=== PATIENT | male | born 1955 | race Native Hawaiian/Other Pacific Islander ===

== ENCOUNTER 2016-09-10 08:38 | Outpatient (CLI) | payer OTHER ==
[~2016-09-10 08:38] MED LIST: AMLO2.5T PO; ASPIRIN ADULT L81 MG OR; CLONIDINE0.2 MG PO; ZESTRIL40 MG OR
== END 2016-09-10 19:06 | disposition home or self-care (01) ==
LOC: MRI 08:38
DX: M54.12 Radiculopathy, cervical region (principal)

== ENCOUNTER 2016-11-26 08:21 | Outpatient (CLI) | payer OTHER | END 2016-11-26 19:48 | disposition home or self-care (01) | LOC: MRI 08:21 | DX: M54.17 Radiculopathy, lumbosacral region (principal) ==

== ENCOUNTER 2018-06-21 14:25 | Outpatient (CLI) | payer OTHER ==
[2018-06-21 14:47] LABS: PLATELET COUNT 269 K/uL (142-355)
[2018-06-21 15:33] LABS: POTASSIUM 3.8 mmol/L (3.6-5.2)
== END 2018-06-21 22:21 | disposition home or self-care (01) ==
LOC: LABW 14:25
PROVIDERS: Internal Medicine
DX: I10 Essential (primary) hypertension (principal); E11.9 Type 2 diabetes mellitus without complications; R53.83 Other fatigue
CPT/HCPCS: 36415; 80053; 84403; 84436; 84443; 85027

== ENCOUNTER 2018-12-03 00:54 | Emergency (ER) | payer OTHER ==
[~2018-12-03] VITALS: Ht 177.8 cm; Wt 88.0 kg
[2018-12-03 01:00] VITALS: BP 159/84; TEMP 97.7
[2018-12-03] MEDS ORDERED: AMLODIPINE BESYLATE PO (01:16)
[2018-12-03] MEDS ORDERED: CLON0.1T16 PO (01:16)
[2018-12-03] MEDS ORDERED: HYDR-3182 PO (01:19)
[2018-12-03] MEDS ORDERED: LISI20TA11 PO (01:20)
== END 2018-12-03 03:33 | disposition home or self-care (01) ==
LOC: ED 00:54
PROC: 0S9C3ZZ Drainage of Right Knee Joint, Percutaneous Approach (ICD-10-PCS; principal; 2018-12-03)
DX: M25.461 Effusion, right knee (principal)
CPT/HCPCS: 96372; 99283; J1885

== ENCOUNTER 2018-12-06 08:40 | Outpatient (CLI) | payer OTHER ==
[~2018-12-06 08:40] MED LIST changes: +AMLODIPINE BESYLATE PO; +CLON0.1T16 PO; +HYDR-3182 PO; +LISI20TA11 PO
[2018-12-06 09:33] LABS: PLATELET COUNT 299 K/uL (142-355)
== END 2018-12-06 20:14 | disposition home or self-care (01) ==
LOC: LABW 08:40
PROVIDERS: Orthopaedic Surgery
DX: M25.561 Pain in right knee (principal); M17.11 Unilateral primary osteoarthritis, right knee; M00.861 Arthritis due to other bacteria, right knee; M25.461 Effusion, right knee
CPT/HCPCS: 36415; 84550; 85027; 85651; 86140

== ENCOUNTER → 2022-08-18 | Emergency (ER) | payer OTHER ==
[~2022-08-18] VITALS: Ht 177.8 cm; Wt 92.5 kg
[2022-08-18 08:34] VITALS: TEMP 98
[2022-08-18 08:51] LABS: PLATELET COUNT 384 K/uL (142-355)
[2022-08-18 08:57] LABS: POTASSIUM 3.8 mmol/L (3.6-5.2)
[2022-08-18 09:09] LABS: PARTIAL THROMBOPLASTIN TIME 32.3 SECONDS (24.5-33.6)
[2022-08-18 09:34] VITALS: BP 164/77
== END ==
LOC: ED 08:34
PROVIDERS: Emergency Medicine
DX: M79.602 Pain in left arm (principal); M75.02 Adhesive capsulitis of left shoulder; R06.02 Shortness of breath; W18.39XA Other fall on same level, initial encounter; Y92.89 Other specified places as the place of occurrence of the external cause
CPT/HCPCS: 80053; 82550; 83880; 84484; 85027; 85610; 85730; 93005; 99283